=== PATIENT | female | born 1985 | race Asian ===

== ENCOUNTER 2021-05-19 17:00 | Emergency (ER) | payer OTHER ==
[~2021-05-19] VITALS: Ht 180.3 cm; Wt 63.5 kg
[2021-05-19 17:12] VITALS: TEMP 97.2
[2021-05-19 18:30] VITALS: BP 108/61
== END 2021-05-19 18:30 | disposition home or self-care (01) ==
LOC: ED 17:00
DX: K04.7 Periapical abscess without sinus (principal)
CPT/HCPCS: 96372; 99283; J0696; J1885; J2930